=== PATIENT | male | born 1990 | race African-American/Black ===

== ENCOUNTER 2016-12-24 17:48 | Emergency (ER) | payer OTHER ==
[~2016-12-24] VITALS: Ht 180.3 cm; Wt 113.4 kg
[2016-12-24 18:41] LABS: HEMATOCRIT 41.9 % (42.0-52.0); HEMOGLOBIN 13.8 gm/dL (14.0-18.0); MCH 27.1 pg (26.0-34.0); MCHC 32.9 g/dL (28.0-37.0); MCV 82.3 fL (80.0-100.0); PLATELET COUNT 314 thou/uL (150-400); RDW 14.9 % (10.5-14.5); WBC 15.1 thou/uL (4.0-11.0)
[2016-12-24 18:45] LABS: MANUAL DIFF YES
[2016-12-24 18:50] LABS: CALCIUM 9.1 mg/dL (8.5-10.1); POTASSIUM 3.5 mmol/L (3.5-5.1)
[2016-12-24 18:56] LABS: ALBUMIN 3.7 g/dL (3.4-5.0); TOTAL BILIRUBIN 0.7 mg/dL (<0.1-1.0); TOTAL PROTEIN 8.4 g/dL (6.4-8.2)
[2016-12-24 19:04] LABS: ABSOLUTE NEUTROPHILS 11.2 thou/uL (1.4-8.2); ANISOCYTOSIS 1+; TOTAL CELL COUNT 100
[2016-12-24] MEDS ORDERED: PREDNISONE 20 M20 MG PO (20:22)
[2016-12-24] MEDS ORDERED: PENICILLIN V P500 MG PO (20:22)
[2016-12-24 20:40] VITALS: BP 142/62
== END 2016-12-24 20:40 | disposition home or self-care (01) ==
LOC: ER 17:48
PROVIDERS: Physician Assistant
DX: J02.0 Streptococcal pharyngitis (principal); J03.00 Acute streptococcal tonsillitis, unspecified; F10.99 Alcohol use, unspecified with unspecified alcohol-induced disorder